=== PATIENT | female | born 1970 | race Two or more races ===

== ENCOUNTER 2017-03-07 07:02 | Day surgery (SDC) | payer OTHER ==
[2017-03-06 09:05] LABS: BASOPHILS 0.6 %; BASOPHILS ABSOLUTE 0.04 10/3/uL (0.0-0.16); EOSINOPHILS 1.1 %; EOSINOPHILS ABSOLUTE 0.08 10/3/uL (0.0-0.53); HEMATOCRIT 37.1 % (36.0-48.0); HEMOGLOBIN 12.3 g/dL (12.0-16.0); IMMATURE GRANULOCYTES 0.1 %; IMMATURE GRANULOCYTES ABSOLUTE 0.01 10/3/uL (0.0-0.11); MANUAL DIFF NO %; MEAN CORPUS HGB CONC 33.2 g/dL (32.0-36.0); MEAN CORPUSCULAR HEMOGLOB 29.9 pg (26.0-34.0); MEAN PLATELET VOLUME 8.8 fL (9.2-13.0); MONOCYTES 6.7 %; MONOCYTES ABSOLUTE 0.48 10/3/uL (0.21-1.20); NEUTROPHILS 49.5 %; NEUTROPHILS ABSOLUTE 3.54 10/3/uL (2.02-8.40); PLATELET COUNT 329 10/3/uL (150-400); RBC DISTRIBUTION WIDTH 13.9 % (12.0-16.0); RED CELL COUNT 4.12 10/6/uL (4.0-5.6); WHITE BLOOD CELLS 7.2 10/3/uL (4.5-10.5)
[2017-03-06 09:10] LABS: ASCORBIC ACID (UR NOT ORDER) NEG (NEG); BILIRUBIN, URINE NEGATIVE (NEG); KETONE, URINE NEGATIVE (NEG); LEUKOCYTE ESTERASE(NOT OR NEG (NEG); WBC (NOT ORDERED) (RFLEX) 1 (0-5)
[2017-03-06 09:49] LABS: BUN (BLOOD UREA NITROGEN) 10 MG/DL (6-23); CALCIUM, SERUM 8.2 MG/DL (8.5-10.4); CHLORIDE, SERUM 107 MMOL/L (96-112); CO2 (CARBON DIOXIDE) 26 MMOL/L (24-34); CREATININE 0.75 MG/DL (0.55-1.02); GFR AFRICAN AMERICAN 111 ML/MIN (>=60); GFR NON AFRICAN AMERICAN 96 ML/MIN (>=60); GLUCOSE, SERUM 91 MG/DL (60-99); PFA (COL/EPI) 103 SEC (72-180); SODIUM, SERUM 140 MMOL/L (135-148)
--- NOTE | ~2017-03-07 | OP ---
Record Of Operation [facility] [address] [place]. [address] NAME: REANNA AMARO : 70 STATUS : REG [facility]#: [id number] AGE: 46 ADM/REG DATE : 03/07/17 MR#: [id number] REPORT SERV DATE: 03/07/17 DICTATED BY: JOSE ANDRADE DATE: 03/07/17 REPORT STATUS : Draft TRANSCRIBED BY: MARYCHUY DATE: 03/07/17 DATE OF PROCEDURE: 03/07/2017 PREOPERATIVE DIAGNOSIS: Right ureteral stone. POSTOPERATIVE DIAGNOSIS: Right ureteral stone. PROCEDURE: Right extracorporeal shock wave lithotripsy. ANESTHESIA: MAC. SPECIMENS: None. ESTIMATED BLOOD LOSS: None. DISPOSITION: To Day Surgery in good condition. HISTORY: This is a 46-year-old woman with a 7 mm right UVJ stone, who presents today for treatment. PROCEDURE IN DETAIL: After consent was obtained, the patient was taken to the lithotripsy table and placed on the table in a supine position. Her stone was located on two planes on the Dornier machine. She was treated from an anterior approach with 3000 shocks at a maximum energy level of 5 and rate of 90 under a MAC anesthetic. She was then taken to Phase-2 in good condition. All of her prescriptions were given to her at her office visit. She will follow up in one to two weeks with a KUB. CYNTHIA/MARYCHUY Jose Andrade M.D. / [id number] CC: Juan Brody M.D.
[~2017-03-07 07:02] MED LIST: CELEXA20 PO; CONTRAVE PO; CRESTOR20 MG PO; FLUCON150 PO; FORTAMET500 MG PO; GLUCPH PO; HIPREX1 GM PO; MAXIMUM D3 PO; METHENAM HIP1 GM OR; PERCOCET 10/3251 TAB PO; SEASONIQUE OR; VANOS 0.1% EX; VITD PO; [UNRECOGNIZED DRUG - OTHER] PO
== END 2017-03-07 15:39 | disposition home or self-care (01) ==
LOC: SDC 07:02
PROVIDERS: Urology
PROC: 0TF6XZZ Fragmentation in Right Ureter, External Approach (ICD-10-PCS; principal; 2017-03-07 09:00)
DX: N20.1 Calculus of ureter (principal); E78.00 Pure hypercholesterolemia, unspecified; R73.03 Prediabetes; K58.9 Irritable bowel syndrome, unspecified; F41.9 Anxiety disorder, unspecified; E66.9 Obesity, unspecified; Z68.29 Body mass index [BMI] 29.0-29.9, adult; Z90.710 Acquired absence of both cervix and uterus; Z88.0 Allergy status to penicillin; Z88.2 Allergy status to sulfonamides; Z88.5 Allergy status to narcotic agent; Z90.89 Acquired absence of other organs; Z90.722 Acquired absence of ovaries, bilateral; Z90.49 Acquired absence of other specified parts of digestive tract; Z79.84 Long term (current) use of oral hypoglycemic drugs; Z79.899 Other long term (current) drug therapy; Z98.890 Other specified postprocedural states
CPT/HCPCS: 50590; 74000; 80048; 81001; 82962; 85025; 85576; A9270-GY; J2250; J2405; J3010